=== PATIENT | female | born 1965 | race Hispanic/Latino ===

== ENCOUNTER 2018-10-07 22:18 | Emergency (ER) | payer BC, OTHER ==
[2018-10-07] MEDS ORDERED: BENZONATATE 100 MG CAPSULE PO ONE (23:52)
== END 2018-10-07 23:57 | disposition home or self-care (01) ==
LOC: EDH 22:18
DX: J06.9 Acute upper respiratory infection, unspecified (principal); E11.9 Type 2 diabetes mellitus without complications; I10 Essential (primary) hypertension
CPT/HCPCS: 87804